=== PATIENT | female | born 1995 | race Two or more races ===

== ENCOUNTER 2018-07-01 19:46 | Emergency (ER) | payer MEDICAID, OTHER ==
[~2018-07-01] VITALS: Ht 160 cm; Wt 60.0 kg
[2018-07-01] MEDS ORDERED: ondansetron 4mg rapidly disintigrating tab PO ONE (20:50)
[2018-07-01] MEDS ORDERED: morphine 4 MG/ML inj SYRINge IM ONE (20:50)
[2018-07-01] MEDS ORDERED: LIDOcaine 1% (10mg/ml)w/preservative injection 20ml MDV IJ ONE (20:50)
[2018-07-01 21:53] VITALS: BP 135/85
[2018-07-01] MEDS ORDERED: CEPH-572 PO (23:07)
== END 2018-07-01 23:23 | disposition home or self-care (01) ==
LOC: ER 19:48
DX: O9A.211 Injury, poisoning and certain other consequences of external causes complicating pregnancy, first trimester (principal); S41.011A Laceration without foreign body of right shoulder, initial encounter; S01.01XA Laceration without foreign body of scalp, initial encounter; R60.0 Localized edema; Z56.0 Unemployment, unspecified; Z3A.12 12 weeks gestation of pregnancy; W45.8XXA Other foreign body or object entering through skin, initial encounter; Y93.89 Activity, other specified; Y92.830 Public park as the place of occurrence of the external cause; Y99.8 Other external cause status
CPT/HCPCS: 12014; 73060; 96372; 99285; J2001; J2270

== ENCOUNTER 2022-06-15 17:54 | Emergency (ER) | payer MEDICAID ==
[~2022-06-15] VITALS: Ht 160 cm; Wt 59.1 kg
[2022-06-15 19:04] VITALS: BP 143/97
[2022-06-15] MEDS ORDERED: sulfamethoxazole/trimethoprim DS (800/160mg) tablet PO ONE (19:35)
[2022-06-15] MEDS ORDERED: SULF1TAB49 PO (19:36)
== END 2022-06-15 19:55 | disposition home or self-care (01) ==
LOC: ER 17:54
DX: L02.512 Cutaneous abscess of left hand (principal); F11.90 Opioid use, unspecified, uncomplicated; Z56.0 Unemployment, unspecified
CPT/HCPCS: 10060; 99283

== ENCOUNTER 2024-02-23 04:47 | Emergency (ER) | payer MEDICAID ==
[~2024-02-23] VITALS: Ht 160 cm; Wt 61.4 kg
[2024-02-23 04:49] VITALS: BP 132/80; PULSE 93; RESP 15; TEMP 98.2; O2SAT 98
== END 2024-02-23 05:24 ==
LOC: ER 04:48
DX: Z34.90 Encounter for supervision of normal pregnancy, unspecified, unspecified trimester (principal); Z56.0 Unemployment, unspecified
CPT/HCPCS: 99283